=== PATIENT | male | born 1970 | race Two or more races ===

== ENCOUNTER 2016-11-06 05:55 | Day surgery (SDC) | payer BC ==
[2016-11-06] VITALS (10 sets, daily range): BP systolic 102–115; BP diastolic 59–69
[~2016-11-06] VITALS: Ht 175.3 cm; Wt 68.0 kg
[~2016-11-06 05:55] MED LIST: NKM
[2016-11-06] MEDS ORDERED: LR 1000ml ONE (07:00)
[2016-11-06] MEDS ORDERED: Succinylcholine 20mg/ml 10ml vial ONE (07:00)
[2016-11-06] MEDS ORDERED: Sterile Water Irrig 1000ml IRRIG ONE (07:00)
[2016-11-06] MEDS ORDERED: Ketorolac 30mg Inj ONE (07:00)
[2016-11-06] MEDS ORDERED: Propofol 10mg/ml 20ml IV ONE (07:00)
[2016-11-06] MEDS ORDERED: Midazolam 2mg/2ml Inj ONE (07:00)
[2016-11-06] MEDS ORDERED: fentaNYL 100 mcg/2 mL IV ONE (07:00)
[2016-11-06] MEDS ORDERED: Bupivacaine w/Epi 0.5% 30ml Vial INJ ONE (07:03)
--- NOTE | 2016-11-06 07:20 | Pre-Procedure Note/Attestation ---
Pre-Procedure Note/Attestation Complete Prior to Procedure Planned Procedure: bilateral Procedure Narrative: repair of bilateral inguinal hernias Indications for Procedure Pre-Operative Diagnosis: bilateral inguinal hernias Attestation I attest that I discussed the nature of the procedure; its benefits; risks and complications; and alternatives (and the risks and benefits of such alternatives ), prior to the procedure, with the patient (or the patient's legal inside outside sales representative). I attest that, if there was a reasonable possibility of needing a blood transfusion, the patient (or the patient's legal inside outside sales representative) was given the [facility] standardized written summary, pursuant to the [place] Blood Safety Act ([place] Health and Safety Code # 1645, as amended). I attest that I re-evaluated the patient just prior to the surgery and that there has been no change in the patient's H&P, except as documented below: NIR HUDSON Nov 06, 2016 07:20
[2016-11-06] MEDS ORDERED: NS Irrig 1000ml IRRIG ONE (08:10)
--- NOTE | 2016-11-06 08:11 | Anethesia Preoperative Eval ---
Anesthesia Pre-op PMH/ROS General Date of Evaluation: Nov 06, 2016 Time of Evaluation: 07:05 Anesthesiologist: Yola ASA Score: ASA 2 Mallampati Score Class I : Soft palate, uvula, fauces, pillars visible Class II: Soft palate, uvula, fauces visible Class III: Soft palate, base of uvula visible Class IV: Only hard plate visible Mallampati Classification: Class II Surgeon: Vishnu Diagnosis: Bilateral injuinal hernia Surgical Procedure: Bilateral hernia repair Anesthesia History: none Social History: smoking Family History: no anesthesia problems Allergies: Coded Allergies: No Known Allergies (Unverified , 11/02/16) Medications: see eMAR Past Medical History Cardiovascular: Denies: CAD, HTN, NV, arrhythmia, other, valve dz Pulmonary: Denies: COPD, [place] DEL[place], asthma, other Gastrointestinal/Genitourinary: Reports: GERD - mild, Denies: CRI, ESRD, other Neurologic/Psychiatric: Denies: CVA, TIA, dementia, depression/anxiety, other Endocrine: Denies: DM, hypothyroidism, other, steroids HEENT: Denies: [place] (L), [place] (R), cataract (L), cataract (R), glaucoma, other Hematology/Immune: Denies: DVT, anemia, bleeding disorder, other Musculoskeletal/Integumentary: Denies: DDD, DJD, OA, RA, edema, other PMH Narrative: as above PSxH Narrative: Septoplasty Anesthesia Pre-op Phys. Exam Physician Exam Last Vital Signs Date Time Temp Pulse Resp B/P Pulse Ox O2 Delivery O2 Flow Rate FiO2 11/06/16 06:55 97.5 60 20 113/69 99 Room Air Constitutional: NAD Neurologic: CN 2-12 intact Cardiovascular: RRR, no M/R/G Respiratory: CTA Gastrointestinal: S/NT/ND Airway Exam Mallampati Score: Class II MO: full Neck: flexible ROM: full Teeth: intact Dentures: no lower, no upper Anesthesia Pre-op A/P Labs see chart Risk Assessment & Plan Assessment: ASA 2 Plan: GA with ETT PONV prevention Status Change Before Surgery: No Pre-Antibiotics Drug: Ancef 1gr. Given Within 1 Hr of Incision: Yes Time Given: 07:52 MARIAN CHASE M.D. Nov 06, 2016 08:11
[2016-11-06] MEDS ORDERED: Ketorolac 30mg Inj IV PRN (08:15)
[2016-11-06] MEDS ORDERED: Hydromorphone 0.5mg/0.5ml inj IVP PRN (08:15)
[2016-11-06] MEDS ORDERED: DiphenhydrAMINE 50mg/ml Inj IVP PRN (08:15)
[2016-11-06] MEDS ORDERED: Meperidine 25mg/0.5ml Inj (FOR RIGORS ONLY) IV PRN (08:15)
[2016-11-06] MEDS ORDERED: Metoclopramide 10mg/2ml Inj IVP PRN (08:15)
[2016-11-06] MEDS ORDERED: LR 1000ml 1,000 ML IVLG SCH (08:30)
--- NOTE | 2016-11-06 09:14 | Immediate Post-Op Evaluation ---
Immediate Post-Op Evalulation Immediate Post-Op Evalulation Procedure: Bilateral injuinal hernia repair Date of Evaluation: Nov 06, 2016 Time of Evaluation: 09:13 IV Fluids: 1100 Blood Products: none Estimated Blood Loss: min Urinary Output: none Blood Pressure Systolic: 116 Blood Pressure Diastolic: 67 Pulse Rate: 72 Respiratory Rate: 20 O2 Sat by Pulse Oximetry: 98 Temperature (Fahrenheit): 98.3 Pain Score (1-10): 1 Nausea: No Vomiting: No Complications none Patient Status: reacts, patent, extubated, none Hydration Status: adequate MARIAN CHASE M.D. Nov 06, 2016 09:14
--- NOTE | 2016-11-06 09:17 | Brief Operative Note ---
Immediate Post Operative Note Operative Note Pre-op Diagnosis: bilateral inguinal hernias Procedure: repair of bilateral inguinal hernias with mesh Post-op Diagnosis: same as pre-op Findings: other - left direct and indirect, right direct hernias Surgeon: rosa Anesthesiologist: mariano Specimen: yes - hernia sac Complications: none Condition: stable Estimated Blood Loss: minimal Drains: none Implant(s) used?: Yes - prolene mesh NIR HUDSON Nov 06, 2016 09:17
[2016-11-06] MEDS ORDERED: HYDROmorphone 1mg/ml Carpuject SUBQ PRN (09:30)
[2016-11-06] MEDS ORDERED: Tylenol #3 tab (300mg/30mg) ORAL PRN (09:30)
--- NOTE | 2016-11-06 12:02 | Operative Note - Dictated ---
DATE OF OPERATION: 11/06/2016 SURGEON: Alvaro Mares M.D. CRANE MAN: None. ANESTHESIOLOGIST: Parag Aceves M.D. ANESTHESIA: General. PREOPERATIVE DIAGNOSIS: Bilateral inguinal hernias. POSTOPERATIVE DIAGNOSIS: Bilateral inguinal hernias. NAME OF OPERATION: Repair of bilateral inguinal hernias with Prolene mesh. FINDINGS AND INDICATIONS: The patient is a very pleasant 45-year-old thin male with a history of progressively more bothersome left inguinal hernia with a bulge and pain. He sought attention from his attending physician, who referred him to me for evaluation and possible surgery. I examined the patient and found him to have bilateral inguinal hernias. The right one smaller than the left, but reducible. At surgery indeed this was the case, left combined direct and indirect hernias were found (pantaloon hernia), and on the right side, there was a direct inguinal hernia. They were both repaired with a Prolene mesh reinforcing the pelvic floor as described. DESCRIPTION OF PROCEDURE: With the patient lying in the supine position on the operating table, under general anesthesia with the entire lower abdominal and groin regions prepped and draped in usual sterile fashion with Betadine, a symmetrical incisions were marked and then incised after complete time-out on the left side following skin lines, subcutaneous tissues divided, the external oblique aponeurosis was identified and opened in the direction of its fibers. The ilioinguinal nerve was then carefully dissected free, the cord was isolated and skeletonized with no indirect inguinal hernia found. The processus vaginalis was identified. The direct inguinal hernia was then imbricated with a 2-0 Vicryl material and then the pelvic floor was reinforced by approximating the shelving edge of the inguinal ligament to the combined aponeurosis of the internal oblique and transversus abdominis muscles using a continuous 2-0 Prolene suture. A slit was made on the lateral aspect of the mesh to allow the cord structures to go through and the Prolene sutures snugly ligated recreating a nice internal ring. The area was irrigated. Hemostasis was adequate. The cord and the nerve were then replaced anatomically and the external oblique aponeurosis closed with 3-0 Vicryl suture and the skin with 4-0 Vicryl subcuticular sutures and Steri-Strips. The same was done on the other side with a symmetrical oblique incision. Subcutaneous tissues divided. The external oblique aponeurosis opened. The ilioinguinal nerve identified left intact and the cord isolated and skeletonized with a moderate size indirect inguinal hernia sac dissected free to the internal ring and high ligation and amputation was undertaken on the left side. DESCRIPTION OF PROCEDURE: With the patient lying in the supine position on the operating table, under general anesthesia with the entire lower abdominal groin regions prepped and draped in usual sterile fashion with Betadine, a left oblique incision was carried out following skin lines, subcutaneous tissues were divided, the external oblique aponeurosis was opened under direction of its fibers. The ilioinguinal nerve was identified left intact and the cord was isolated and skeletonized with the indirect inguinal hernia sac found, dissected free to the internal ring, ligated up high with 2-0 Vicryl material and amputated. The pelvic floor was then reinforced after reducing the imbricating the direct inguinal hernia with 2-0 Vicryl material and then the mesh was used to reinforce the pelvic floor by approximating the shelving edge of the inguinal ligament to the combined aponeurosis of the internal oblique and transversus abdominis muscles were then interface of the mesh, which was fashioned to fit the defect. A slit was made on the lateral aspect of the mesh to allow the cord structures to go through and the Prolene sutures snugly ligated recreating a nice internal ring. The area was irrigated. Hemostasis adequate. The neural cord and the nerve were then replaced anatomically. The external oblique aponeurosis closed with 3-0 Vicryl suture and the skin with 4-0 Vicryl subcuticular sutures and Steri-Strips. Marcaine 0.5% with epinephrine 20 mL was injected for long-acting local anesthetic. The right side was then done with a symmetrical incision, make an oblique incision following skin lines in the right groin. Subcutaneous tissues divided. The external oblique aponeurosis opened in the direction of its fibers. The ilioinguinal nerve was also identified left intact and the cord was isolated and skeletonized with no indirect inguinal hernia found and the processus vaginalis was seen. The direct inguinal hernia was then dissected free and imbricated with 2-0 Vicryl material and at this point, the area was irrigated. Hemostasis was adequate. The pelvic floor was then reinforced by approximating the shelving edge of the inguinal ligament to the combined aponeurosis of the internal oblique and transversus abdominis muscles using a continuous 2-0 Prolene suture. A slit was made on the lateral aspect to allow the cord structures to go through and the mesh was then snugly tied with 0 Prolene suture and a nice internal ring recreated. The area was then double checked for hemostasis, which was adequate and the patella and the wound was closed after replacing the cord and the nerve anatomically. The external oblique aponeurosis was opened in the direction of its fibers and was closed with 3-0 Vicryl material. The subcutaneous tissues were approximated with 3-0 Vicryl suture and the skin with 4-0 Vicryl subcuticular sutures and Steri-Strips. Marcaine 0.5% with epinephrine 20 mL was also injected for long-acting local anesthetic. The patient tolerated the procedure well. Estimated blood loss was less than 5 mL. Sponge and needle counts correct. He went to the recovery room in stable condition. Alvaro Mares M.D. DR: KVNG JOB#: [id number] CC:
--- NOTE | 2016-11-06 13:16 | 48 Hour Post Anesthesia Eval ---
Post Anesthesia Evaluation Procedure: Bilateral injuinal hernia repair Date of Evaluation: Nov 06, 2016 Time of Evaluation: 13:15 Blood Pressure Systolic: 112 0: 53 Pulse Rate: 54 Respiratory Rate: 22 Temperature (Fahrenheit): 97.4 O2 Sat by Pulse Oximetry: 99 Airway: patent Nausea: No Vomiting: No Pain Intensity: 2 Hydration Status: adequate Cardiopulmonary Status: stable Mental Status/LOC: patient returned to baseline Follow-up Care/Observations: n/a Post-Anesthesia Complications: none Follow-up care needed: ready to discharge MARIAN CHASE M.D. Nov 06, 2016 13:16
== END 2016-11-06 14:20 | disposition home or self-care (01) ==
LOC: SUR 05:55
DX: K40.20 Bilateral inguinal hernia, without obstruction or gangrene, not specified as recurrent (principal); K21.9 Gastro-esophageal reflux disease without esophagitis; Z87.891 Personal history of nicotine dependence
CPT/HCPCS: 49505; J0330; J0690; J1885; J2250; J2405; J2704; J3010; J7120; 94003; 94150; J2180